=== PATIENT | male | born 1955 | race African-American/Black ===

== ENCOUNTER 2019-11-16 08:35 | Emergency (ER) | payer OTHER ==
[2019-11-16 11:29] LABS: Bacteria/HPF None Seen HPF (None Seen); Bilirubin Negative (Negative); Blood, Urine Trace (Negative); Clarity Clear (Clear); Glucose, Urine (Dipstick) Normal (Negative); Leukocyte Negative Leu/uL (Negative); Nitrite Negative (Negative); Protein, Urine (Dipstick) 20 mg/dL (Neg-Trace); Squamous Epithelial None Seen HPF (0-3); WBC/HPF 0-3 HPF (0-3)
[2019-11-16] MEDS ORDERED: Azithromycin 250 MG TAB ONE (12:05)
[2019-11-16] MEDS ORDERED: Acetaminophen/Codeine 30-300mg Tablet ONE (12:05)
[2019-11-16] MEDS ORDERED: cefTRIAXone\\ROCEPHIN 250 MG VIAL ONE (12:05)
[2019-11-16] MEDS ORDERED: Lidocaine 1% PF 5 ML VIAL ONE (12:06)
--- NOTE | 2019-11-16 13:20 | ULT ---
SCROTAL ULTRASOUND: 11/16/19 INDICATION: Right sided testicular pain for three days. TECHNIQUE: Darden scale, color Doppler and spectral Doppler images were obtained of the scrotum. FINDINGS: The right testicle measures 3.1 x 4.9 x 3.1 cm and demonstrates increased vascular flow. No intratest icular mass is evident. There is a moderate sized right sided hydrocele. Visualized right epididymis is normal appearing. The left testicle measures 3.2 x 4.1 x 2.0 cm. There is normal vascular flow. No intratesticular mas s is seen within the left testicle. Very tiny left sided hydrocele is present. The visualized left ep ididymis is normal appearing. IMPRESSION: 1. Findings suspicious for right sided orchitis with moderate right hydrocele. 2. No intratesticular mass demonstrated. POS: BH
== END 2019-11-16 12:38 | disposition home or self-care (01) ==
LOC: ERS 08:35
DX: N43.3 Hydrocele, unspecified (principal); I10 Essential (primary) hypertension; I48.91 Unspecified atrial fibrillation; F17.210 Nicotine dependence, cigarettes, uncomplicated; Z79.899 Other long term (current) drug therapy
CPT/HCPCS: 76870; 81003; 81015; 93976; 96372; J0696; J2001

== ENCOUNTER 2021-07-15 18:40 | Emergency (ER) | payer OTHER ==
[2021-07-15 19:40] LABS: #Basophils 0.1 thou/uL (0.0-0.2); #Eosinphils 0.2 thou/uL (0.0-0.7); #Monocytes 0.9 thou/uL (0.11-0.59); #Neutrophils 4.3 thou/uL (1.40-6.50); %Basophils 0.7 % (0.0-1.0); %Eosinophils 2.6 % (0.0-10.0); %Lymphocytes 35.2 % (21.0-51.0); %Monocytes 10.7 % (0.0-10.0); %Neutrophils 50.8 % (42.0-75.0); Hemoglobin 14.3 g/dL (14.0-18.0); Mean Corpuscular Hemoglobin 32.9 pg (27.0-31.0); Mean Corpuscular Volume 96.6 fL (78.0-98.0); Mean Platelet Volume 8.2 fL (7.4-10.4); Platelet Count 208 thou/uL (130-400); RBC Distribution Width 13.3 % (11.5-14.5); Red Blood Cell (RBC) Count 4.35 mill/uL (4.70-6.10); White Blood Cell (WBC) Count 8.4 thou/uL (4.8-10.8)
[2021-07-15 20:02] LABS: ALT (SGPT) 14 U/L (8-55); AST (SGOT) 20 U/L (5-34); Albumin 3.4 g/dL (3.4-4.8); Alkaline Phosphatase 87 U/L (40-110); Anion Gap 12 mmol/L (10-20); BUN (Urea Nitrogen) 11 mg/dL (8.4-25.7); Bilirubin, Total 0.6 mg/dL (0.2-1.2); Calc. Creatinine Clearance 0 mL/min (70-130); Calcium 9.2 mg/dL (7.8-10.44); Carbon Dioxide 28 mmol/L (23-31); Chloride 104 mmol/L (98-107); Glucose 84 mg/dL (80-115); Magnesium 1.6 mg/dL (1.6-2.6); Protein, Total 7.4 g/dL (5.8-8.1); Sodium 141 mmol/L (136-145)
[2021-07-15 20:07] LABS: Potassium 2.7 mmol/L (3.5-5.1)
[2021-07-15] MEDS ORDERED: Pot Chloride/Pot Bicarb/Cit Ac 25 mEq Effervescent Tablet ONE (20:17)
[2021-07-15 23:26] LABS: SARS-CoV-2 NAA Rapid Test Not Detected (NotDetected)
[2021-07-16] MEDS ORDERED: Acetaminophen 500 MG TAB ONE (00:04)
== END 2021-07-16 01:29 | disposition short-term general hospital (02) ==
LOC: ERS 18:40
DX: E87.6 Hypokalemia (principal); I11.0 Hypertensive heart disease with heart failure; I50.9 Heart failure, unspecified; I48.91 Unspecified atrial fibrillation; Z20.822 Contact with and (suspected) exposure to COVID-19; F17.210 Nicotine dependence, cigarettes, uncomplicated
CPT/HCPCS: 36415; 71045; 80053; 83735; 83880; 84484; 85025; 93005; 94760; U0002

== ENCOUNTER 2024-05-04 03:22 | Emergency (ER) | payer OTHER ==
[2024-05-04 04:15] LABS: #Basophils 0.04 10x3/uL (0.0-0.2); %Basophils 0.5 % (0.0-1.0); %Eosinophils 3.4 % (0.0-10.0); %Lymphocytes 44.6 % (21.0-51.0); %Monocytes 11.9 % (0.0-10.0); %Neutrophils 39.3 % (42.0-75.0); Hematocrit 45.6 % (42.0-52.0); Hemoglobin 15.4 g/dL (14.0-18.0); Mean Corpuscular HGB CONC 33.8 g/dL (32.0-36.0); Mean Corpuscular Volume 94.8 fL (78.0-98.0); Mean Platelet Volume 10.8 fL (7.4-10.4); Platelet Count 228 10x3/uL (130-400); RBC Distribution Width 13.4 % (11.5-14.5); Red Blood Cell (RBC) Count 4.81 mill/uL (4.70-6.10)
[2024-05-04 04:18] LABS: INR-International Normal Ratio 1.3; Prothrombin Time 16.2 sec (12.0-14.7)
[2024-05-04 04:47] LABS: ALT (SGPT) 31 U/L (8-55); AST (SGOT) 31 U/L (5-34); Albumin 3.8 g/dL (3.4-4.8); Alkaline Phosphatase 91 U/L (40-110); Anion Gap 14 mmol/L (10-20); BUN (Urea Nitrogen) 14 mg/dL (8.4-25.7); Bilirubin, Total 0.3 mg/dL (0.2-1.2); Calc. Creatinine Clearance 0 mL/min (70-130); Calcium 9.8 mg/dL (7.8-10.44); Carbon Dioxide 23 mmol/L (23-31); Chloride 106 mmol/L (98-107); Estimated GFR 96; Globulin 4.5 g/dL (2.4-3.5); Glucose 97 mg/dL (80-115); Potassium 4.2 mmol/L (3.5-5.1); Protein, Total 8.3 g/dL (5.8-8.1); Sodium 139 mmol/L (136-145)
[2024-05-04 06:09] LABS: Troponin I 0.027 ng/mL (< 0.028)
[2024-05-04] MEDS ORDERED: Iopamidol 370 76% 100 ML VIAL ONE (14:00)
== END 2024-05-04 08:30 | disposition home or self-care (01) ==
LOC: ERS 03:22
DX: K92.0 Hematemesis (principal); I10 Essential (primary) hypertension; I48.91 Unspecified atrial fibrillation; F17.210 Nicotine dependence, cigarettes, uncomplicated
CPT/HCPCS: 36415; 71045; 71275; 80053; 84484; 85025; 85379; 85610; 85730; 86850; 86900; 86901; 93005; Q9967

== ENCOUNTER 2025-02-12 20:07 | Emergency (ER) | payer OTHER | END 2025-02-12 20:56 | disposition left against medical advice (07) | LOC: ERS 20:07 | DX: Z04.1 Encounter for examination and observation following transport accident (principal); Z55.6 Problems related to health literacy | CPT/HCPCS: 93005; 99284 ==